=== PATIENT | male | born 1950 | race Caucasian/White ===

== ENCOUNTER → 2020-09-06 10:54 | Outpatient (BNVA) | payer OTHER, SELFPAY | PROVIDERS: Family Provider Family Medicine; PCP Specialist; Visit Provider Internal Medicine | DX: M06.9 Rheumatoid arthritis, unspecified (principal); Z79.899 Other long term (current) drug therapy; Z11.59 Encounter for screening for other viral diseases; Z11.1 Encounter for screening for respiratory tuberculosis | CPT/HCPCS: 36415; 80053; 85025; 86431; 86480; 86704; 86803; 87340; 99203; 99204 ==

== ENCOUNTER 2021-05-22 10:52 | Outpatient (CLI) | payer OTHER, SELFPAY ==
[2021-05-22 11:36] LABS: Basophils % 0.6 %; Eosinophils # 0.2 10^3/uL (0.0-0.8); Eosinophils % 3.2 %; Hematocrit 44.8 % (42.0-52.0); Hemoglobin 14.6 g/dL (11.7-16.6); Lymphocytes % 27.3 %; Mean Corpuscular HGB Conc 32.6 g/dL (30.0-36.0); Mean Corpuscular Hemoglobin 31.9 pg (28.0-34.0); Mean Platelet Volume 9.8 fL (7.4-10.4); Monocytes # 0.5 10^3/uL (0.2-0.9); Monocytes % 6.7 %; Neutrophils # 4.43 10^3/uL (1.8-7.7); Neutrophils % 61.9 %; Nucleated Red Blood Cells % 0 %; Platelet Count 212 10^3/cmm (130-400); Red Blood Count 4.57 10^6/uL (4.1-5.3); Red Cell Distribution Width 13.8 % (12.1-15.1); White Blood Count 7.2 10^3/uL (4.0-10.0)
[2021-05-22 11:39] LABS: Erythrocyte Sedimentation Rate 2 mm/hr (0-10)
[2021-05-22 11:58] LABS: Alanine Aminotransferase 16 U/L (0-41); Albumin Level 4.2 g/dL (3.5-5.2); Alkaline Phosphatase 92 IU/L (40-130); Anion Gap 9.6 (5-19); Aspartate Amino Transferase 16 U/L (0-40); Blood Urea Nitrogen 13 mg/dL (8-23); Calcium 10.5 mg/dL (8.5-10.5); Carbon Dioxide 28 mmol/L (22-29); Chloride 103 mmol/L (98-107); Globulin 3.1 g/dL (1.3-4.6); Glucose 92 mg/dL (65-115); Osmolality Calculated 282 mOsm/kg (285-295); Potassium 4.6 mmol/L (3.5-5.1); Sodium 136 mmol/L (136-145); Total Bilirubin 0.6 mg/dL (0.15-1.2); Total Protein 7.3 g/dL (6.6-8.7)
== END 2021-05-22 10:53 | disposition home or self-care (01) ==
PROVIDERS: PCP Physical Medicine & Rehabilitation; Visit Provider Internal Medicine
DX: Z79.899 Other long term (current) drug therapy; M05.9 Rheumatoid arthritis with rheumatoid factor, unspecified; F17.220 Nicotine dependence, chewing tobacco, uncomplicated
CPT/HCPCS: 80053; 85025; 85651; 86140; 99214

== ENCOUNTER → 2021-08-04 11:32 | Outpatient (BNVA) | payer OTHER, SELFPAY | PROVIDERS: PCP Physical Medicine & Rehabilitation; Visit Provider Internal Medicine | DX: M06.9 Rheumatoid arthritis, unspecified (principal); Z79.899 Other long term (current) drug therapy | CPT/HCPCS: 99213; 99214 ==

== ENCOUNTER → 2021-11-26 13:44 | Outpatient (BNVA) | payer OTHER, SELFPAY | PROVIDERS: PCP Physical Medicine & Rehabilitation; Visit Provider Internal Medicine | DX: M05.9 Rheumatoid arthritis with rheumatoid factor, unspecified (principal); Z79.899 Other long term (current) drug therapy | CPT/HCPCS: 99214 ==

== ENCOUNTER → 2022-03-05 09:02 | Outpatient (BNVA) | payer OTHER, SELFPAY | PROVIDERS: PCP Physical Medicine & Rehabilitation; Visit Provider Internal Medicine | DX: M05.9 Rheumatoid arthritis with rheumatoid factor, unspecified (principal); Z79.899 Other long term (current) drug therapy | CPT/HCPCS: 99213 ==

== ENCOUNTER → 2022-08-11 08:48 | Outpatient (BNVA) | payer OTHER, SELFPAY | PROVIDERS: PCP Physical Medicine & Rehabilitation; Visit Provider Internal Medicine | DX: M06.9 Rheumatoid arthritis, unspecified (principal); Z79.899 Other long term (current) drug therapy | CPT/HCPCS: 99213 ==

== ENCOUNTER → 2022-12-09 11:02 | Outpatient (BNVA) | payer OTHER, SELFPAY | PROVIDERS: PCP Physical Medicine & Rehabilitation; Visit Provider Internal Medicine | DX: Z79.899 Other long term (current) drug therapy (principal); M06.9 Rheumatoid arthritis, unspecified | CPT/HCPCS: 36415; 80053; 85025; 85651; 86140; 99213 ==

== ENCOUNTER → 2023-08-03 13:41 | Outpatient (BNVA) | payer OTHER, SELFPAY | PROVIDERS: PCP Physical Medicine & Rehabilitation; Visit Provider Internal Medicine Rheumatology | DX: Z79.899 Other long term (current) drug therapy; M05.79 Rheumatoid arthritis with rheumatoid factor of multiple sites without organ or systems involvement; Z71.85 Encounter for immunization safety counseling | CPT/HCPCS: 36415; 80076; 82306; 82565; 85025; 86140; 99214 ==

== ENCOUNTER 2023-11-05 12:29 | Outpatient (CLI) | payer OTHER, SELFPAY ==
[2023-11-05 12:41] LABS: Basophils # 0.1 10^3/uL (0.0-0.1); Basophils % 0.7 %; Eosinophils # 0.6 10^3/uL (0.0-0.8); Eosinophils % 7.8 %; Hematocrit 38.4 % (37-53); Lymphocytes % 25.2 %; Mean Corpuscular HGB Conc 33.9 g/dL (30-55); Mean Corpuscular Volume 97.5 fl (82-101); Mean Platelet Volume 9.7 fL (7.4-10.4); Monocytes # 0.6 10^3/uL (0.2-0.9); Monocytes % 7.3 %; Neutrophils # 4.74 10^3/uL (1.8-7.7); Neutrophils % 58.4 %; Nucleated Red Blood Cells % 0 %; Platelet Count 177 10^3/cmm (157-399); Red Blood Count 3.94 10^6/uL (3.85-5.65); Red Cell Distribution Width 14.7 % (12.1-15.1); White Blood Count 8.11 10^3/uL (3.29-11.43)
[2023-11-05 13:01] LABS: Alanine Aminotransferase 15 U/L (0-41); Alkaline Phosphatase 82 U/L (40-130); Aspartate Amino Transferase 15 U/L (0-40); Globulin 2.7 g/dL (1.3-4.6); Total Bilirubin 0.3 mg/dL (0.15-1.2); Total Protein 6.7 g/dL (6.6-8.7)
== END 2023-11-05 12:30 | disposition home or self-care (01) ==
LOC: LAB 12:30
PROVIDERS: PCP Physical Medicine & Rehabilitation; Visit Provider Internal Medicine Rheumatology
DX: M06.9 Rheumatoid arthritis, unspecified (principal); Z79.899 Other long term (current) drug therapy
CPT/HCPCS: 36415; 80076; 82565; 85025; 86140

== ENCOUNTER → 2024-02-01 10:09 | Outpatient (BNVA) | payer OTHER, SELFPAY | PROVIDERS: PCP Physical Medicine & Rehabilitation; Visit Provider Internal Medicine Rheumatology | DX: M05.79 Rheumatoid arthritis with rheumatoid factor of multiple sites without organ or systems involvement (principal); Z79.899 Other long term (current) drug therapy; Z71.85 Encounter for immunization safety counseling | CPT/HCPCS: 99214 ==

== ENCOUNTER → 2024-06-13 10:49 | Outpatient (BNVA) | payer OTHER, SELFPAY | PROVIDERS: PCP Physical Medicine & Rehabilitation; Visit Provider Internal Medicine Rheumatology | DX: Z79.899 Other long term (current) drug therapy (principal); M05.79 Rheumatoid arthritis with rheumatoid factor of multiple sites without organ or systems involvement; Z71.85 Encounter for immunization safety counseling; M06.9 Rheumatoid arthritis, unspecified | CPT/HCPCS: 36415; 80076; 82565; 85025; 85651; 86140; 99214 ==

== ENCOUNTER 2024-09-13 11:29 | Outpatient (CLI) | payer OTHER, SELFPAY ==
[2024-09-13 12:06] LABS: Basophils % 0.5 %; Eosinophils # 0.2 10^3/uL (0.0-0.8); Hematocrit 36.7 % (37-53); Lymphocytes # 1.5 10^3/uL (0.8-4.8); Lymphocytes % 26.9 %; Mean Corpuscular HGB Conc 33.5 g/dL (30-55); Mean Corpuscular Hemoglobin 32.7 pg (27-33); Mean Corpuscular Volume 97.6 fl (82-101); Mean Platelet Volume 9.5 fL (7.4-10.4); Monocytes # 0.2 10^3/uL (0.2-0.9); Monocytes % 3.8 %; Neutrophils # 3.67 10^3/uL (1.8-7.7); Neutrophils % 64.3 %; Nucleated Red Blood Cells % 0 %; Platelet Count 218 10^3/cmm (157-399); Red Blood Count 3.76 10^6/uL (3.85-5.65); Red Cell Distribution Width 14.5 % (12.1-15.1); White Blood Count 5.72 10^3/uL (3.29-11.43)
[2024-09-13 12:14] LABS: Erythrocyte Sedimentation Rate 9 mm/hr (0-10)
[2024-09-13 12:26] LABS: Alanine Aminotransferase 15 U/L (0-41); Albumin Level 3.6 g/dL (3.5-5.2); Alkaline Phosphatase 89 U/L (40-130); Aspartate Amino Transferase 16 U/L (0-40); Bilirubin Direct 0.16 mg/dL (0.00-0.30); C Reactive Protein 3.6 mg/L (0.0-4.9); Globulin 2.9 g/dL (1.3-4.6); Total Bilirubin 0.3 mg/dL (0.15-1.2); Total Protein 6.5 g/dL (6.6-8.7)
== END 2024-09-13 11:30 | disposition home or self-care (01) ==
LOC: LAB 11:31
PROVIDERS: PCP Physical Medicine & Rehabilitation; Visit Provider Internal Medicine Rheumatology
DX: Z79.899 Other long term (current) drug therapy (principal); M06.9 Rheumatoid arthritis, unspecified
CPT/HCPCS: 36415; 80076; 82565; 85025; 85651; 86140

== ENCOUNTER → 2024-12-12 11:09 | Outpatient (BNVA) | payer OTHER, SELFPAY | PROVIDERS: PCP Physical Medicine & Rehabilitation; Visit Provider Internal Medicine Rheumatology | DX: M05.79 Rheumatoid arthritis with rheumatoid factor of multiple sites without organ or systems involvement (principal); Z79.899 Other long term (current) drug therapy; Z71.85 Encounter for immunization safety counseling; Z85.820 Personal history of malignant melanoma of skin | CPT/HCPCS: 36415; 80076; 82306; 82565; 85025; 85651; 86140; 86480; 99214 ==

== ENCOUNTER 2025-03-13 10:55 | Outpatient (CLI) | payer OTHER, SELFPAY ==
[2025-03-13 11:28] LABS: Hematocrit 37.6 % (37-53); Hemoglobin 12.60 g/dL (11.27-16.99); Mean Corpuscular HGB Conc 33.5 g/dL (30-55); Mean Corpuscular Hemoglobin 32.6 pg (27-33); Mean Corpuscular Volume 97.4 fl (82-101); Nucleated Red Blood Cells % 0 %; Platelet Count 171 10^3/cmm (157-399); Red Blood Count 3.86 10^6/uL (3.85-5.65); White Blood Count 7.74 10^3/uL (3.29-11.43)
[2025-03-13 11:59] LABS: Alanine Aminotransferase 13 U/L (0-41); Albumin Level 3.8 g/dL (3.5-5.2); Alkaline Phosphatase 87 U/L (40-130); Aspartate Amino Transferase 19 U/L (0-40); Globulin 2.7 g/dL (1.3-4.6); Total Protein 6.5 g/dL (6.6-8.7)
== END 2025-03-13 10:56 | disposition home or self-care (01) ==
LOC: LAB 10:56
PROVIDERS: PCP Physical Medicine & Rehabilitation; Visit Provider Internal Medicine Rheumatology
DX: Z79.899 Other long term (current) drug therapy (principal)
CPT/HCPCS: 36415; 80076; 82565; 85025; 85651; 86140